=== PATIENT | male | born 1975 | race Caucasian/White ===

== ENCOUNTER 2018-01-24 09:51 | Outpatient (CLI) | payer OTHER ==
--- NOTE | 2018-01-24 14:14 | MRI Report ---
Reason: ARTHRITIS CERVICAL SPINE Procedure Date: 01/24/2018 Accession Number: [id number] / [id number] Procedure: MRI - Cervical Spine W/O CPT Code: FULL RESULT: EXAM: MRI CERVICAL SPINE WITHOUT CONTRAST EXAM DATE: 01/24/2018 10:43 AM. CLINICAL HISTORY: Cervical spine arthritis. Right arm weakness and pain. Left arm pain. COMPARISONS: Cervical spine radiographs 12/31/2017. TECHNIQUE: Multiplanar, multisequence T1-weighted and fluid-sensitive sequences of the cervical spine without contrast. Other: None. FINDINGS: No suspicious marrow replacement is present in the cervical vertebral bodies. C2-C6: 4: No posterior disk protrusion is seen. No central canal or foraminal stenosis. C4-C5: Left facet hypertrophy is seen. Minimal bilateral uncovertebral joint spurring is seen. Very mild left foraminal stenosis. C5-C6: No posterior disk protrusion. No central canal or foraminal stenosis. C6-C7: Moderate loss of disk space height is seen. A moderate posterior disk protrusion is seen. There is some associated osteophyte formation involving the posterolateral margins of the disk. Bilateral uncovertebral joint spurring is seen. Mild central canal stenosis is present. Moderate to severe left and severe right foraminal stenosis are present. There is a suggestion of subtle T2 hyperintense signal in the cervical spinal cord at this level. This is best seen on image 7 of series 301 C7-T1: No posterior disk protrusion. IMPRESSION: 1. Moderate degenerative disk disease and osteophyte formation are present at C6-C7. This results in mild central canal stenosis. There is subtle T2 hyperintense signal in the cervical spinal cord at this level raising the possibility of myelomalacia/cord edema. 2. Bilateral foraminal stenosis is seen at C6-C7. 3. Mild left foraminal stenosis at C4-C5 due to uncovertebral joint spurring and facet hypertrophy. Findings discussed with Dr. Bear at roughly 1:45 PM [facility]
== END 2018-01-24 09:52 | disposition home or self-care (01) ==
LOC: DI 09:51
PROVIDERS: ATTEND Orthopaedic Surgery
DX: M50.30 Other cervical disc degeneration, unspecified cervical region (principal); M48.02 Spinal stenosis, cervical region; M25.78 Osteophyte, vertebrae; M46.92 Unspecified inflammatory spondylopathy, cervical region
CPT/HCPCS: 72141

== ENCOUNTER 2019-12-09 15:35 | Outpatient (CLI) | payer OTHER ==
--- NOTE | 2019-12-09 15:38 | XRAY Report ---
PROCEDURE: Knee 3 View RT INDICATIONS: RIGHT KNEE PAIN TECHNIQUE: 3 views of the right knee were acquired. COMPARISON: None. FINDINGS: Bones: No acute fractures or dislocations. No suspicious bony lesions. Soft tissues: Small joint effusion. No suspicious soft tissue calcifications. IMPRESSION: No acute osseous abnormality. Small joint effusion. If symptoms persist, further evaluat ion with MRI may be obtained. Reviewed by: Luciano Roblero MD on 12/09/2019 3:37 PM PDT Approved by: Luciano Roblero MD on 12/09/2019 3:37 PM PDT Station ID: [id number]
== END 2019-12-09 23:59 | disposition home or self-care (01) ==
LOC: DI.WCP 15:35
PROVIDERS: ATTEND Family Medicine
DX: M23.91 Unspecified internal derangement of right knee (principal); M25.461 Effusion, right knee

== ENCOUNTER 2019-12-26 13:29 | Outpatient (CLI) | payer OTHER ==
--- NOTE | 2019-12-28 12:00 | MRI Report ---
PROCEDURE: Knee RT W/O INDICATIONS: KNEE DERANGEMENT TECHNIQUE: Noncontrast sagittal PD fast spin echo and T2 fast spin echo with fat saturation, sagittal 3-D gradie nt sequence with fat saturation; coronal T1 spin echo and PD fast spin echo with fat saturation, and axial PD fast spin echo with fat saturation through the knee. COMPARISON: None. FINDINGS: Image quality: Excellent. Menisci: Oblique tear involving posterior horn of medial meniscus extending to inferior articulating surface is seen. There is no evidence of focal lateral meniscal tear. The meniscal root ligaments vic ear intact. Cruciate ligaments: Thickened proximal to mid anterior cruciate ligament is seen suggestive of sprain /low-grade partial thickness tear. No full-thickness ACL rupture. PCL is intact. Medial structures: The medial collateral ligament appears intact. The posterior oblique ligament, s emimembranosus tendon insertions, and oblique popliteal ligament, and meniscocapsular junction appear intact. Visualized portions of the pes anserinus tendons appear normal. No abnormal bursal fluid. Lateral structures: The lateral collateral ligament, long and short heads of the biceps femoris tend on appear intact. The popliteus tendon appears normal; the popliteofibular ligament appears intact. The posterosuperior and anteroinferior popliteomeniscal fascicles appear intact. The arcuate and fa bellofibular ligaments appear intact, around the lateral inferior geniculate artery. Iliotibial band appears normal. Anterior structures: The quadriceps and patellar tendons appear intact. Patellar alignment is eligio l. No femoral trochlear dysplasia or ventral trochlear prominence. No edema in the infrapatellar fa t pad. Bones and cartilage: No bone marrow contusions or fractures. Mild medial femoral tibial compartment joint space narrowing is seen. The cartilage of the medial and lateral femorotibial compartments, as well as the patellofemoral compartment, appears normal in thickness. Joint space: There is small to moderate amount of joint fluid, no gross intra-articular loose body. No Willoughby?s cyst. Normal appearing synovial plicae are incidentally noted. IMPRESSION: 1. Oblique tear involving posterior horn of medial meniscus extending to inferior articulating surfac e. No evidence of focal lateral meniscal tear. 2. Suggestion of sprain/low-grade intrasubstance partial thickness tear involving anterior cruciate l igament. No full-thickness ACL rupture. PCL is intact. 3. Mild medial femoral tibial compartment osteoarthritis. Articulating cartilages are intact. 4. Small to moderate amount of joint fluid. No gross intra-articular loose body. Reviewed by: Louie Garza MD on 12/28/2019 11:59 AM PDT Approved by: Louie Garza MD on 12/28/2019 11:59 AM PDT Station ID: [id number]
== END 2019-12-26 13:30 | disposition home or self-care (01) ==
LOC: DI 13:29
PROVIDERS: ATTEND Family Medicine
DX: S83.241A Other tear of medial meniscus, current injury, right knee, initial encounter (principal); M17.11 Unilateral primary osteoarthritis, right knee